=== PATIENT | female | born 2000 | race African-American/Black ===

== ENCOUNTER 2024-12-23 09:41 | Emergency (ER) | payer MEDICAID, SELFPAY ==
--- NOTE | 2024-12-23 | ECG_ITS ---
Test Reason : CHEST PAIN Blood Pressure : */* mmHG Vent. Rate : 79 BPM Atrial Rate : 79 BPM P-R Int : 172 ms QRS Dur : 82 ms QT Int : 360 ms P-R-T Axes : 36 57 21 degrees QTcB Int : 412 ms Normal sinus rhythm with sinus arrhythmia Normal ECG Early Repolarization No previous ECGs available Referred By: Generic ED Physician Electronically Signed By: CARLITOS VAZQUEZ MD
--- NOTE | ~2024-12-23 | XR_ITS ---
EXAMINATION: XR CHEST CLINICAL INFORMATION: cough, sob COMPARISON: None available. TECHNIQUE: 2 views of the chest were obtained. FINDINGS: No consolidation, pleural effusion or pneumothorax. Cardiomediastinal silhouette size is normal. Osseous structures are intact. XR/XR chest 2V IMPRESSION: Normal. Electronically signed by: Guillermo Benavides MD 12/23/2024 01:08 PM [facility] [place]
[2024-12-23 09:55] VITALS: BP 113/75; PULSE 80; RESP 18; TEMP 36.6; O2SAT 99; BMI 21.0
--- NOTE | 2024-12-23 13:32 | ED_ITS ---
HPI - URI/Sore Throat General Chief Complaint: Upper Respiratory Symptoms Stated Complaint: Chest Pain X 2-3 Days Time Seen by Provider: 12/23/24 13:58 Source: patient, RN notes reviewed and old records reviewed Mode of arrival: ambulatory History of Present Illness ED Provider: La Nena Capps PA-C HPI Narrative: 24-year-old female with no significant past medical history presenting to the ED complaining of cough with associated chest discomfort with cough and SOB x today. Reports multiple sick contacts at [employer]. Denies fever, chills, difficulty or inability to swallow, travel Related Data Allergies Allergy/AdvReac Type Severity Reaction Status Date / Time No Known Allergies Allergy Verified 12/23/24 09:56 Review of Systems Review of Systems: Yes all other systems are reviewed and are negative Constitutional: Constitutional: Reports as per [facility] Past Medical History Attestation statement: The following information was validated with the patient. Source: old records reviewed Social History Social History Do you have a plan to hurt others: No Plan Physical Exam Vital Signs: Vital Signs: Last Vital Signs Temp 97.9 F 12/23/24 09:55 Pulse 80 12/23/24 09:55 Resp 18 12/23/24 09:55 BP 113/75 12/23/24 09:55 Pulse Ox 99 12/23/24 09:55 O2 Del Method Room Air 12/23/24 09:55 BMI result Body Mass Index 21.0 Const: General: cooperative, healthy appearing and no acute distress Orientation/consciousness: patient oriented x3 Limitations: no limitations HEENT: Head: Yes normal to inspection and Yes atraumatic Ears: hearing grossly normal bilaterally and external ears normal General nose exam: Normal external nose present Face and sinus: Yes normal facial exam Mouth: Normal oral and palatal mucosa present and no drooling Throat: Yes posterior oropharynx normal, Yes tonsils normal, Yes uvula midline, No peritonsillar mass, No uvula laterally displaced and No uvular edema Eyes: General: appearance normal, both eyes and all related structures EOM: EOMs intact bilaterally Neck: Neck: Yes normal visual inspection and Yes no meningeal signs Resp: Effort & Inspection: normal respiratory effort, no respiratory distress and no stridor Auscultation: clear to auscultation bilaterally, no crackles, no rales, no rhonchi and no wheezes Cardio: Rate: regular rate Heart sounds: S1 normal heart sound present and S2 normal heart sound present GI: Inspection: Yes normal to inspection Palpation (GI): Soft to palpation, nontender, no guarding and not rigid Skin: Rashes: no rashes Wounds: no wounds Neuro: General: patient oriented x3, tone normal and no meningeal signs Cranial nerves: Yes CN's II-XII intact bilaterally Gait exam (Neuro): Normal gait present Extrem: General: Yes normal to inspection Course Course Course Narrative: This is a Rapid Medical Exam performed in triage by La Nena Capps PA-C. Full HPI, ROS and PE to be performed by primary ED provider. 24-year-old female presenting to the ED c/o chest discomfort x today with associated cough and SOB. Admits to multiple sick contacts. PE: Lungs CTA, talking in complete sentences Plan: Viral testing, CXR, EKG Medical Decision Making Medical Decision Making MDM Narrative: 24-year-old female with no significant past medical history presenting to the ED complaining of cough with associated chest discomfort with cough and SOB x today. On exam vital signs stable, NAD, nontoxic appearing, physical exam as noted above, uvula midline, oropharynx WNL, lungs CTA. Concern for viral illness vs pneumonia. Lower suspicion for bronchitis, ACS, PE Plan: EKG, Viral testing, rapid strep, x-ray Please refer to course for remaining clinical decision making, interpretation of labs/imaging results, and discussions with consultants and/or family members. Differential Diagnosis Differential Diagnoses: The differential diagnosis associated with the presentation includes As above Lab Data [facility] Lab Attestation statement: I reviewed the patient's lab results. Independent Interpretation I performed an independent interpretation of an: EKG (EKG my interpretation: normal sinus rhythm with sinus arrhythmia. Rate of 79. QRS 82. No previous EKGs to compare. No STEMI ) and Plain X-Ray Radiology Impression Discussion of test interpretation with radiology: I have reviewed the radiologist's reading. External Record Review External record reviewed: Inpatient record, Office record, Outpatient record, Prior outpatient labs, Prior outpatient radiology, Primary care record and Outside ED record Tests considered The following testing was considered but not selected: As above Prescription Management I considered prescription management with: Other Chronic Conditions Patient?s care impacted by: Other Social Determinants Patient?s care significantly limited by Social Determinants of Health including: Problems related to primary support group and Other Social Determinant of Health Discharge Plan Discharge Clinical Impression: Upper respiratory infection Patient Disposition: Home, Self-Care Instructions: Upper Respiratory Infection (DC) Additional Instructions: You have a virus. We tested you for COVID, flu, RSV and strep throat. You will be contacted with positive results only No antibiotics are indicated at this time Make sure you are staying hydrated. Drink plenty of fluids. Rest Alternate Tylenol and Motrin at home as needed for body aches and fever Follow-up with your doctor. If symptoms persist or worsen return to the emergency department *If you are a child & not tolerating liquid or urinating for more than 6 hours, or fevers are uncontrolled with medications at home, return to the emergency department* Referrals: Physician,Nonstaff [Primary Care Provider] - 3 days Print Language: Citizen Of [place]
[2024-12-23 14:20] LABS: IDNOW Serial# 58CA691E; Strep A Nucleic Acid Negative (Negative)
[2024-12-23 14:49] VITALS: BP 114/72; PULSE 78; RESP 18; TEMP 36.6; O2SAT 98
[2024-12-23 14:51] LABS: Influenza A PCR NEGATIVE (Negative); Influenza B PCR NEGATIVE (Negative); Resp Syncy Virus RNA Qual PCR NEGATIVE (Negative); SARS COV2 PCR INHOUSE NEGATIVE (Negative)
== END 2024-12-23 14:49 | disposition home or self-care (01) ==
LOC: HO.ED 14:14
PROVIDERS: Physician Assistant; Emergency Provider Emergency Medicine
DX: J06.9 Acute upper respiratory infection, unspecified (principal)
CPT/HCPCS: 0241U; 71046; 87651; 93005; 99283

== ENCOUNTER → 2024-12-23 09:51 | Outpatient (BNV) | payer SELFPAY | PROVIDERS: Visit Provider Internal Medicine Cardiovascular Disease | DX: R07.9 Chest pain, unspecified (principal) | CPT/HCPCS: 93010 ==

== ENCOUNTER → 2024-12-23 12:33 | Outpatient (BNV) | payer SELFPAY | PROVIDERS: Emergency Provider Emergency Medicine; Visit Provider Radiology Diagnostic Radiology | DX: R07.9 Chest pain, unspecified (principal) | CPT/HCPCS: 71046 ==

== ENCOUNTER 2025-01-12 13:03 | Emergency (ER) | payer MEDICAID, SELFPAY ==
--- NOTE | ~2025-01-12 | XR_ITS ---
EXAMINATION: XR CHEST CLINICAL INFORMATION: cough COMPARISON: 12/23/2024. TECHNIQUE: Frontal view of the chest was obtained. FINDINGS: The cardiac, hilar, and mediastinal contours are normal. The lungs are clear bilaterally. No pneumothorax or effusion. No focal osseous or soft tissue abnormality. XR/XR chest 1V IMPRESSION: Normal chest. Electronically signed by: Magen Kim MD 01/12/2025 01:37 PM EDT
[2025-01-12 13:09] VITALS: BP 107/57; PULSE 95; RESP 18; TEMP 36.8; O2SAT 98; BMI 21.1
--- NOTE | 2025-01-12 13:11 | ED_ITS ---
HPI - General Adult General Chief complaint: Upper Respiratory Symptoms Stated complaint: Bronchitis Time Seen by Provider: 01/12/25 15:55 Source: patient Limitations: no limitations History of Present Illness ED Provider: Karey Harris PA-C HPI narrative: 24-year-old female with a history of asthma who has had viral symptoms since December 28. Associated cough wheezing that has refractory to her home medica tions. Patient has been using her inhaler more frequently as his directed. Related Data Previous Rx's ?Medication ?Instructions ?Recorded albuterol sulfate 90 mcg/actuation 2 puff inhalation Q4-6H PRN 01/12/25 aerosol inhaler shortness of breath or wheezing #8.5 grams azithromycin 250 mg tablet See Rx Instructions PO .COMPLEX #6 01/12/25 tabs prednisone 20 mg tablet 40 mg (2 x 20 mg) PO DAILY #10 tabs 01/12/25 Allergies Allergy/AdvReac Type Severity Reaction Status Date / Time No Known Allergies Allergy Verified 01/12/25 13:10 Review of Systems Review of Systems: Yes all other systems are reviewed and are negative Constitutional: Constitutional: Denies fatigue and Denies fever(s) Cardiovascular: Cardiovascular: Denies chest pain and Denies dyspnea Respiratory: Respiratory: Reports cough, Denies dyspnea and Reports wheezing Gastrointestinal: Gastrointestinal: Denies diarrhea, Denies nausea and Denies vomiting Endocrine: Endocrine: Denies fatigue Allergic/Immunologic: Allergic/Immunologic: Reports wheezing PMFSH Past Medical History Attestation statement: The following information was validated with the patient. Social History Social History Advance Directives: No Advance Directives Information Provided: No Physical Exam ED Vital Signs: Vital Signs - 24 hr 01/12/25 13:09 01/12/25 16:48 Temperature 98.2 F 98.2 F Pulse Rate 95 95 Respiratory Rate 18 18 Blood Pressure 107/57 L 107/57 L Pulse Oximetry 98 98 Oxygen Delivery Method Room Air Room Air BMI result Body Mass Index 21.1 Const Other: Alert well-appearing Orientation/consciousness: patient oriented x3 Resp Other: Nonlabored respirations no wheezing, no active cough Cardio Other: Normal peripheral perfusion Neuro General: patient oriented x3, gait normal, no focal motor deficits and CN's II- XI intact bilaterally Psych Other: Cooperative Course Course Course Narrative: This is a rapid medical exam performed by Emelia Marie PA-C. The patient is a 24-year-old female with a history of asthma who has had viral symptoms since December 28. Associated cough wheezing that has refractory to her home medications. Patient has been using her inhaler more frequently as his directed. Denies fever. On exam her lungs are clear there was no wheezing at this time. She is afebrile. We will obtain a chest x-ray and a viral panel. She is stable and can return to the waiting room pending her full medical assessment. Medical Decision Making Medical Decision Making MDM Narrative: 24-year-old female with a history of asthma who has had viral symptoms since December 28. Associated cough wheezing that has refractory to her home medications. Patient has been using her inhaler more frequently as his directed. Problem: Asthma History: Per patient I have considered the following differential diagnoses: Bronchitis, pneumonia, viral syndrome, asthma exacerbation Plan: Patient declined a repeat nasal swab, she just had 1 a few days ago. That is understandable. Obtaining a chest x-ray. Patient was treated for mild asthma exacerbation. However given duration of symptoms that have been prolonged, we will add a Z-Karri for bronchitis. She does not smoke tobacco, I am not covering her for cap. I have independently reviewed the following tests: Chest x-ray:INDINGS: No consolidation, pleural effusion or pneumothorax. Cardiomediastinal silhouette size is normal. Osseous structures are intact. XR/XR chest 2V IMPRESSION: Normal. Discharge Plan Discharge Clinical Impression: Bronchitis Patient Disposition: Home, Self-Care Instructions: Acute Bronchitis (ED) Additional Instructions: You are being treated for bronchitis. See home care instructions. Use the inhaler only as directed. Take the steroid as directed. Use the Z-Karri as directed. The chest x-ray is clear there was no pneumonia. Follow up with primary care as needed. Prescriptions: New azithromycin 250 mg tablet See Rx Instructions .ROUTE .COMPLEX Qty: 6 0RF Rx Instructions: For 250 mg dose pack: take 500 mg today (day 1), then 250 mg for 4 days (days 2-5) prednisone 20 mg tablet 40 mg PO DAILY Qty: 10 0RF albuterol sulfate 90 mcg/actuation HFA aerosol inhaler 2 puff inhalation Q4-6H PRN (Reason: shortness of breath or wheezing) Qty: 8.5 0RF Interventions: ED Discharge Assessment Last Done: 01/12/25 16:48 Discharge Date/Time: 01/12/25 16:48 Print Language: [place]i
[2025-01-12 16:48] VITALS: BP 107/57; PULSE 95; RESP 18; TEMP 36.8; O2SAT 98
== END 2025-01-12 16:48 | disposition home or self-care (01) ==
PROVIDERS: Emergency Provider Emergency Medicine Emergency Medical Services
DX: J40 Bronchitis, not specified as acute or chronic (principal); R05.9 Cough, unspecified; J45.909 Unspecified asthma, uncomplicated
CPT/HCPCS: 71045; 99282; 99283

== ENCOUNTER → 2025-01-12 13:10 | Outpatient (BNV) | payer MEDICAID, SELFPAY | PROVIDERS: Visit Provider Radiology Diagnostic Radiology | DX: R05.9 Cough, unspecified (principal) | CPT/HCPCS: 71045 ==

== ENCOUNTER 2025-01-25 09:37 | Emergency (ER) | payer OTHER, SELFPAY ==
[2025-01-25 09:44] VITALS: BP 111/63; PULSE 84; RESP 16; TEMP 37; O2SAT 99; BMI 20.1
[2025-01-25 11:09] LABS: Influenza A PCR NEGATIVE (Negative); Influenza B PCR NEGATIVE (Negative); Resp Syncy Virus RNA Qual PCR NEGATIVE (Negative); SARS COV2 PCR INHOUSE NEGATIVE (Negative)
--- NOTE | 2025-01-25 11:18 | ED_ITS ---
HPI - General Adult General Chief complaint: Upper Respiratory Symptoms Stated complaint: bronchitis , vomiting, wants meds Time Seen by Provider: 01/25/25 11:17 Source: patient Mode of arrival: ambulatory Limitations: no limitations History of Present Illness ED Provider: Erin Miller PA-C HPI narrative: Patient is a 24 year old assigned female at with a history of recent bronchitis diagnosis presenting to the emergency department today with continued cough and requesting a Dayquil and Nyquil prescription. Patient states that she was here last week and diagnosed with bronchitis but now she would like to have dayquil and nyquil prescribed as well as a work note. Patient denies any dizziness, lightheadedness, abdominal pain, nausea, vomiting, fever, chills, blurry vision, double vision, loss of vision, chest pain, difficulty breathing, shortness of breath, back pain, night sweats, pain with urination, increased urinary frequency, increased urinary urgency, blood in her urine or stool, syncope or a near syncopal episode, recent trauma or falls, bowel incontinence, bladder incontinence, or any other complaints at this time. Onset (ago): week(s) (1) Relieving factors: none Exacerbating factors: none Associated symptoms: cough Related Data Previous Rx's ?Medication ?Instructions ?Recorded albuterol sulfate 90 mcg/actuation 2 puff inhalation Q4-6H PRN 01/12/25 aerosol inhaler shortness of breath or wheezing #8.5 grams azithromycin 250 mg tablet See Rx Instructions PO .COMPLEX #6 01/12/25 tabs prednisone 20 mg tablet 40 mg (2 x 20 mg) PO DAILY #10 tabs 01/12/25 chlorpheniramine-dextromethorphan See Rx Instructions .Route 01/25/25 2 mg-15 mg/15 mL oral liquid .COMPLEX #236 mL ([facility] Children's NyQuil Cold and Cough) dextromethorphan HBr 5 mg/5 mL 10 mg (10 mL) PO Q4-6H PRN cough 01/25/25 oral syrup ([facility] DayQuil Cough) #354 mL Allergies Allergy/AdvReac Type Severity Reaction Status Date / Time No Known Allergies Allergy Verified 01/25/25 09:46 Review of Systems Constitutional: Constitutional: Reports no additional constitutional comp laints, Denies chills, Denies fever(s) and Denies night sweats Eyes: Eyes: Reports no additional eye complaints, Denies blurry vision, Denies change in vision, Denies diplopia, Denies eye discharge, Denies loss of vision and Denies eye pain ENT: Denies dizziness Cardiovascular: Cardiovascular: Reports no additional cardiovascular complaints, Denies chest pain, Denies lightheadedness, Denies Loss of Consciousness and Denies dyspnea Respiratory: Respiratory: Reports no additional respiratory complaints, Reports cough and Denies dyspnea Gastrointestinal: Gastrointestinal: Reports no additional gastrointestinal complaints, Denies abdominal pain, Denies melena, Denies hematochezia, Denies change in bowel habits and Denies change in stool character Genitourinary: Genitourinary: Denies hematuria, Denies urinary frequency, Denies dysuria, Denies urinary incontinence, Denies urinary hesitancy and Denies urinary urgency Musculoskeletal: Musculoskeletal: Reports no additional musculoskeletal complaints, Denies numbness and Denies tingling Neurologic: Denies dizziness, Denies loss of vision, Denies numbness and Denies tingling Psychiatric: Psychiatric: Reports no additional psychiatric complaints Endocrine: Endocrine: Reports no additional endocrine complaints Hematologic/Lymphatic: Hematologic/Lymphatic: Reports no additional hematologic/lymphatic complaints Allergic/Immunologic: Allergic/Immunologic: Reports no additional allergic/immunologic complaints PMFSH Past Medical History Attestation statement: The following information was validated with the patient. Source: old records reviewed and nursing notes reviewed Social History Social History Advance Directives: No Advance Directives Information Provided: Yes Do you have a plan to hurt others: No Plan Physical Exam ED Vital Signs: Vital Signs - 24 hr 01/25/25 09:44 01/25/25 11:34 Temperature 98.6 F 98.6 F Pulse Rate 84 84 Respiratory Rate 16 16 Blood Pressure 111/63 111/63 Pulse Oximetry 99 99 Oxygen Delivery Method Room Air Room Air BMI result Body Mass Index 20.1 Const General: cooperative, no acute distress, alert and awake Nutritional Appearance: well nourished Orientation/consciousness: patient oriented x3 Limitations: no limitations HENMT Head: Yes normal to inspection and Yes atraumatic Ears: hearing grossly normal bilaterally and external ears normal General nose exam: Normal external nose present, no nasal discharge noted and no epistaxis Face and sinus: Yes normal facial exam, No abrasion and No laceration Mouth: Normal oral and palatal mucosa present, no drooling and no muffled voice Eyes General: appearance normal, both eyes and all related structures Periorbital: periorbital findings normal Eyelids: Yes eyelids normal Conjunctivae: conjunctivae normal Pupils: Equal, round and reactive pupils present EOM: EOMs intact bilaterally Neck Neck: Yes normal visual inspection, Yes full ROM and Yes no lymphadenopathy Chest Chest palpation & inspection: normal inspection of the chest Resp Effort & Inspection: normal respiratory effort and able to speak in complete sentences GI Inspection: Yes normal to inspection Neuro General: patient oriented x3, moves all extremities and CN's II-XI intact bilaterally Cranial nerves: Yes Equal, round and reactive pupils present Cognition (Neuro): normal cognition Extrem General: Yes normal to inspection, Yes full ROM and Yes capillary refill normal Psych Appearance: grossly normal Mental Status: mental status grossly normal Affect: normal affect Attitude: cooperative Thought process: Normal thought process present Thought content: Normal thought content present Insight: Good insight present (Psych) Medical Decision Making Medical Decision Making MDM Narrative: Patient is a 24 year old assigned female at with a history of recent bronchitis diagnosis presenting to the emergency department today with continued cough and requesting a Dayquil and Nyquil prescription. Patient's physical exam was unremarkable. I explained my physical exam findings to the patient. I answered all questions asked by the patient. I stressed the importance of the patient taking her medication as directed (either prescribed or as the over the counter packaging recommends). I stressed the importance of the patient following up with her primary care provider. I stressed the importance of the patient returning to the emergency department immediately if her symptoms were to worsen or if she were to develop any dizziness, shortness of breath, difficulty breathing, chest pain, blurry vision, loss of vision, nausea, vomiting, abdominal pain, fever, chills, back pain, or any other complaints. Patient verbalized agreement and understanding with this treatment plan and discharge. Differential Diagnosis Differential Diagnoses: The differential diagnosis associated with the presentation includes Cough Request for time off of work Request for Dayquil and Nyquil prescription Bronchitis Admission/Observation Consideration of admission/observation: Escalation of care including ad mission/observation considered Patient would have been admitted to the hospital had her clinical presentation warranted hospital admission. Lab Data [facility] Lab Attestation statement: I reviewed the patient's lab results. My interpretation of these studies and their corresponding values is that they are grossly normal. Labs: Lab Results 01/25/25 Range/Units 10:22 Influenza Type A (PCR) NEGATIVE (Negative) Influenza Type B (PCR) NEGATIVE (Negative) RSV RNA Qual (PCR) NEGATIVE (Negative) SARS-CoV-2 RNA (RT-PCR) NEGATIVE (Negative) Discharge Plan Discharge Clinical Impression: Bronchitis Patient Disposition: Home, Self-Care Instructions: Acute Bronchitis (ED) Additional Instructions: I prescribed you Dayquil and Nyquil as you have requested. However, given these are over the counter medications - I am unsure if the pharmacy will fill it through your insurance or not. That is something you need to confirm / discuss with your pharmacy. Follow up with your primary care provider. Return to the emergency department immediately if your symptoms worsen or if you develop any numbness, tingling, dizziness, shortness of breath, difficulty breathing, chest pain, blurry vision, loss of vision, nausea, vomiting, abdominal pain, fever, chills, back pain, or any other complaints. Please see the information below about our Patient Portal. If you are not yet enrolled in the [facility] Patient Portal, you will receive an enrollment email invitation following your visit to any [facility] setting. You may also self-enroll in the Patient Portal by visiting our website: [email or web address] The following information is required to access the Patient Portal: - Your [facility] Medical Record Number - Your personal home email address (must match what is in your electronic medical record, Registration staff can assist with this) - Name - Date of Capabilities of the Patient Portal: - Message some providers - View upcoming appointments - Access your health summary, medical history, and visit history - View current conditions and allergies - View procedure and lab results - View your medications, including guidelines, side effects, and precautions - Complete pre-appointment questionnaires requested by your provider - Ready summary reports of your office visits and procedures To access the Patient Portal Mobile [employer], follow these directions: - Search [employer] in the [employer] Store or Google Play Store - Download the [employer] - Search for [facility] - Enter your login/password Prescriptions: New [facility] NyQuil Cold-C 2-15 mg/15 mL liquid See Rx Instructions .ROUTE .COMPLEX Qty: 236 0RF Rx Instructions: Take as prescribed on bottle directions. [facility] DayQuil Cough 5 mg/5 mL syrup 10 mg PO Q4-6H PRN (Reason: cough) Qty: 354 0RF Rx Instructions: Take as directed by instructions on the bottle. No Action azithromycin 250 mg tablet See Rx Instructions .ROUTE .COMPLEX Qty: 6 0RF Rx Instructions: For 250 mg dose pack: take 500 mg today (day 1), then 250 mg for 4 days (days 2-5) prednisone 20 mg tablet 40 mg PO DAILY Qty: 10 0RF albuterol sulfate 90 mcg/actuation HFA aerosol inhaler 2 puff inhalation Q4-6H PRN (Reason: shortness of breath or wheezing) Qty: 8 .5 0RF Referrals: [facility] Family Medicine [Provider Group] (Call to establish and follow up with a primary care provider. If you already have a primary care provider, please follo w up with them.) [facility] [Provider Group] (Call to establish and follow up with a primary care provider. If you already have a primary care provider, please follow up with them.) [facility] Primary [facility] [Provider Group] (Call to establish and follow up with a primary care provider. If you already have a primary care provider, please follow up with them.) [facility] Primary [facility] [Provider Group] (Call to establish and follow up with a primary care provider. If you already have a primary care provider, please follow up with them.) Stand Alone Forms: Work/School Release Interventions: ED Discharge Assessment Last Done: 01/25/25 11:34 Discharge Date/Time: 01/25/25 11:34 Print Language: Vietnamese
[2025-01-25 11:34] VITALS: BP 111/63; PULSE 84; RESP 16; TEMP 37; O2SAT 99
== END 2025-01-25 11:34 | disposition home or self-care (01) ==
PROVIDERS: Emergency Provider Emergency Medicine
DX: J40 Bronchitis, not specified as acute or chronic (principal); Z03.818 Encounter for observation for suspected exposure to other biological agents ruled out
CPT/HCPCS: 0241U; 99282; 99283

== ENCOUNTER 2025-09-30 19:04 | Emergency (ER) | payer OTHER, SELFPAY ==
[2025-09-30 19:16] VITALS: BP 130/70; PULSE 93; RESP 16; TEMP 36.9; O2SAT 96; BMI 20.1
--- NOTE | 2025-09-30 19:19 | ED_ITS ---
HPI - Headache General Chief Complaint: Headache Stated Complaint: Headache Time Seen by Provider: 09/30/25 23:44 History of Present Illness ED Provider: Tobias GREGORY Narrative: The patient is a 25-year-old female who has no significant past medical history and is on no medications. The patient says that at around noon today they developed a headache that was associated with nausea. At around 15:00 they started to experience vomiting. They vomited several times an ultimately came to the emergency room. There was a long wait in the waiting room and while waiting to be seen the patient's headache has significantly improved. The patient reports that the headache had been associated with the photophobia earlier. Her photophobia a subsequently resolved. The patient has had similar headaches in the past but never as severe as today. She has had nausea with the headaches like this in the past but she has never vomited before. The patient is enrolled in the [employer] program on the campus of the [facility] [employer] [facility]. She has been learning [employer] and [employer]. She is from [place]. She goes home every weekend. The last time she has a headache like this was a few months ago. It was less severe than the headache today. She has never had a headache which prompted her to go to the emergency room before. Related Data Previous Rx's ?Medication ?Instructions ?Recorded albuterol sulfate 90 mcg/actuation 2 puff inhalation Q 4-6H PRN 01/12/25 aerosol inhaler shortness of breath or wheez ing #8.5 grams azithromycin 250 mg tablet See Rx Instructions PO .COM PLEX #6 01/12/25 tabs prednisone 20 mg tablet 40 mg (2 x 20 mg) PO DAILY # 10 tabs 01/12/25 chlorpheniramine-dextromethorphan See Rx Instructions .Route 01/25/25 2 mg-15 mg/15 mL oral liquid .COMPLEX #236 mL ([facility] NyQuil Cold and Cough) dextromethorphan HBr 5 mg/5 mL 10 mg (10 mL) PO Q4-6H PRN cough 01/25/25 oral syrup ([facility] DayQuil Cough) #354 mL Allergies Allergy/AdvReac Type Severity Reaction Status Date / Time No Known Allergies Allergy Verified 09/30/25 19:19 Review of Systems 2 Review of Systems: Yes all other systems are reviewed and are negative [facility] Social History Social History Advance Directives: No Advance Directives Information Provided: Yes Physical Exam 2 Vital Signs: Vital Signs: Last Vital Signs Temp 98.0 F 10/01/25 01:35 Pulse 82 10/01/25 01:35 Resp 16 10/01/25 01:35 BP 118/68 10/01/25 01:35 Pulse Ox 97 10/01/25 01:35 O2 Del Method Room Air 10/01/25 01:35 BMI result Body Mass Index 20.1 Const: Other: The patient is a healthy looking 25-year-old who was awake and alert. She does not seem in acute distress or toxic or ill. She is pleasant and cooperative. Orientation/consciousness: patient oriented x3 HEENT: Other: The face is symmetrical. ?Mucous membranes moist. Eyes: Other: Pupils are round equal, conjunctivae are clear, extraocular movements intact Neck: Other: The patient is neck is completely supple. She can touch her chin to her chest very easily and fully. Resp: Effort & Inspection: normal respiratory effort Auscultation: clear to auscultation bilaterally Cardio: Rate: regular rate Rhythm: regular rhythm Heart sounds: S1 normal heart sound present and S2 normal heart sound present GI: Other: Abdomen is soft and nontender Skin: Other: The skin is dry and unremarkable Neuro: General: patient oriented x3, tone normal, moves all extremities, no focal motor deficits and CN's II-XI intact bilaterally Extrem: Other: There is no calf swelling or tenderness. No asymmetry. No peripheral edema. Course Course Course Narrative: This is an RME: Additional HPI, ROS, PE not included below will be deferred to primary provider. RME assessment and note performed by: Meghana Boykin PA-C This is a 89-tuia-huo-female who presents to the ER with a complaint of headache starting today. Patient reports gradual onset, with associated nausea and vomiting. She states that she has had some nausea and vomiting. She took Tylenol with no relief. Stopped her control 2 weeks ago. Unsure if she is . Plan: Labs, viral swabs, further ER evaluation needed. Medications Administered Discontinued Medications Generic Name Dose Route Start Last Admin Trade Name Freq PRN Reason Stop Dose Admin Ibuprofen 400 mg 10/01/25 00:08 10/01/25 00:22 Ibuprofen 400 Mg Tablet PO 10/01/25 00:09 400 mg ONCE ONE Administration Ondansetron HCl 4 mg 10/01/25 00:08 10/01/25 00:22 Ondansetron Odt 4 Mg Tab.Aarti PAPPAS 10/01/25 00:09 4 mg ONCE ONE Administration Medical Decision Making Medical Decision Making [facility] Narrative: The patient is a 25-year-old female who presents with a headache that was associated with vomiting and photophobia. While waiting to be seen her headache is largely resolved. She was given some ibuprofen and oral ondansetron. She was able to tolerate oral intake. She had no ongoing vomiting. I think this was probably a migraine phenomenon. She will be discharged to returned to [employer]. She should return if worse. Lab Data 09/30/25 19:37 09/30/25 19:37 Labs: Lab Results 09/30/25 Range/Units 19:37 WBC 13.4 H (4.8-10.8) X10*3/uL RBC 4.61 (4.20-5.50) X10*6/uL Hgb 13.8 (12.0-16.0) g/dl Hct 39.7 (37.0-47.0) % MCV 86.1 (80.0-98.0) fL MCH 29.9 (27.0-33.0) pg MCHC 34.8 (31.0-35.0) g/dl RDW 13.2 (11.0-16.0) % Plt Count 264 (160-400) X10*3/uL MPV 10.2 (9.4-12.3) fL Immature Gran % (Auto) 0.3 (0.0-0.4) % Neut % (Auto) 86.3 H (45-73) % Lymph % (Auto) 9.2 L (20-40) % [place] % (Auto) 3.7 (2-11) % Eos % (Auto) 0.1 (0-4) % Baso % (Auto) 0.4 (0-2) % Lymph # (Auto) 1.2 (1.2-4.9) X10*3/uL [place] # (Auto) 0.5 (0.1-1.2) X10*3/uL Eos # (Auto) 0.0 (0.0-0.4) X10*3/uL Baso # (Auto) 0.1 (0.0-0.2) X10*3/uL Abs Immat Gran (auto) 0.04 H (0.00-0.03) X10*3/uL Absolute Neuts (auto) 11.5 H (2.0-8.3) x10*3/uL Absolute Nucleated RBC 0.000 (0.0-0.012) X10*3/uL Nucleated RBC % (auto) 0.0 (0.0-0.2) /100WBC Sodium 140 (135-145) mmol/L Potassium 4.4 (3.3-5.1) mmol/L Chloride 108 (96-108) mmol/L Carbon Dioxide 25 (22-29) mmol/L Anion Gap 11 L (12-20) BUN 10 (9-16) mg/dL Creatinine 0.81 (0.5-1.4) mg/dL Estim Creat Clear Calc 83.6 Estimated GFR > 60 Random Glucose 94 (60-115) mg/dL Calcium 9.9 (8.4-10.2) mg/dL Magnesium 2.1 (1.6-2.6) mg/dL Total Bilirubin 0.8 (0.0-1.0) mg/dL Direct Bilirubin 0.3 (0.0-0.5) mg/dL AST 35 H (5-31) U/L ALT 22 (0-31) U/L Alkaline Phosphatase 64 (39-117) U/L Total Protein 7.9 (6.5-8.0) g/dL Albumin 5.0 (3.5-5.0) g/dL Beta HCG, Quant < 2 mIU/mL Influenza Type A (PCR) NEGATIVE (Negative) Influenza Type B (PCR) NEGATIVE (Negative) RSV RNA Qual (PCR) NEGATIVE (Negative) SARS-CoV-2 RNA (RT-PCR) NEGATIVE (Negative) Discharge Plan Discharge Clinical Impression: Headache, Vomiting Patient Disposition: Home, Self-Care Instructions: Migraine Headache (ED) Additional Instructions: I think that you might have had a migraine headache today. Migraine headaches are often associated with nausea and vomiting and also sensitivity to light. Please rest and take it easy. When you are able to follow up with your primary care doctor in [place] that would be good to do to discuss these episodes further. Return to the emergency room if you feel significantly worse. Prescriptions: No Action azithromycin 250 mg tablet See Rx Instructions .ROUTE .COMPLEX Qty: 6 0RF Rx Instructions: For 250 mg dose pack: take 500 mg today (day 1), then 250 mg for 4 days (days 2-5) prednisone 20 mg tablet 40 mg PO DAILY Qty: 10 0RF albuterol sulfate 90 mcg/actuation HFA aerosol inhaler 2 puff inhalation Q4-6H PRN (Reason: shortness of breath or wheezing) Qty: 8.5 0RF [facility] NyQuil Cold-C 2-15 mg/15 mL liquid See Rx Instructions .ROUTE .COMPLEX Qty: 236 0RF Rx Instructions: Take as prescribed on bottle directions. [facility] DayQuil Cough 5 mg/5 mL syrup 10 mg PO Q4-6H PRN (Reason: cough) Qty: 354 0RF Rx Instructions: Take as directed by instructions on the bottle. Interventions: ED Discharge Assessment Last Done: 10/01/25 01:35 Discharge Date/Time: 10/01/25 01:36 Print Language: Congolese
[2025-09-30 19:45] LABS: MANUAL DIFF FLAG NO
[2025-09-30 19:47] LABS: Hematocrit 39.7 % (37.0-47.0); Hemoglobin 13.8 g/dl (12.0-16.0); Imm Gran Abs Auto 0.04 X10*3/uL (0.00-0.03); Imm Gran Pct Auto 0.3 % (0.0-0.4); Lymphocytes Absolute Auto 1.2 X10*3/uL (1.2-4.9); Mean Corpuscular HGB Conc 34.8 g/dl (31.0-35.0); Mean Corpuscular Hemoglobin 29.9 pg (27.0-33.0); Mean Corpuscular Volume 86.1 fL (80.0-98.0); NRBC Abs Auto 0.000 X10*3/uL (0.0-0.012); NRBC Pct Auto 0.0 /100WBC (0.0-0.2); Platelet Count 264 X10*3/uL (160-400); Red Blood Count 4.61 X10*6/uL (4.20-5.50); White Blood Count 13.4 X10*3/uL (4.8-10.8)
[2025-09-30 20:06] LABS: Alanine Aminotransferase 22 U/L (0-31); Albumin Level 5.0 g/dL (3.5-5.0); Alkaline Phosphatase 64 U/L (39-117); Anion Gap 11 (12-20); Aspartate Amino Transferase 35 U/L (5-31); Blood Urea Nitrogen 10 mg/dL (9-16); Calcium 9.9 mg/dL (8.4-10.2); Carbon Dioxide 25 mmol/L (22-29); Chloride 108 mmol/L (96-108); Creatinine Clr Calc Pharmacy 83.6; Estimated Glomerular Filt Rate > 60; Magnesium 2.1 mg/dL (1.6-2.6); Potassium 4.4 mmol/L (3.3-5.1); Sodium 140 mmol/L (135-145); Total Protein 7.9 g/dL (6.5-8.0)
[2025-09-30 20:22] LABS: Resp Syncy Virus RNA Qual PCR NEGATIVE (Negative); SARS COV2 PCR INHOUSE NEGATIVE (Negative)
--- OUTSIDE RECORDS SUMMARY | 2025-09-30 23:50 | XMS_ITS | Encounter Summary ---
Author Organization [facility] Address [address] [place] [phone] Phone Care Team Providers Care Television Specialist Name Role Phone Lindsey Jiménez NP Primary Care Provide r Encounter Details Date Type Department Care Team ([facility] st Contact Info) Description 06/17/2023 Telephone [facility] OBGYN Gynecology Resident [address] [place] [address] Radha Kitchen [address] [place] [address] [email or web address] Social History Tobacco Use Types Packs/Day Years Used Date Smoking Tobacco: Never Smokeless Tobacco: Current Comments:Sronto leaf smokes 3x/week Alcohol Use Standard Drinks/Week Comments Not Currently 0 (1 standard drink = 0.6 oz pur e alcohol) Education Answer Date Recorded Are you interested in more education? Not on brook e 02/20/2023 Are you concerned about learning? Not on file 02/20/2023 No 02/20/2023 No 02/20/2023 Digital Access Answer Date Recorded No 03/15/2023 No 03/15/2023 Reliable internet access at home? Not on file 03/15/2023 Device with a working camera? Not on file Intimate Partner Violence Answer Date R ecorded Are you denied basic needs s uch as food, clothing, or medical care? Deferred 06/12/2023 In the past 12 months have y ou been in a relationship with a person who hurts, threatens, or tries to control you? Deferred 06/12/2023 Are you denied basic needs s uch as food, clothing, or medical care? Deferred 06/12/2023 In the past 12 months have y ou been in a relationship with a person who hurts, threatens, or tries to control you? Deferred 06/12/2023 Comments No Sex and Gender Information Value Date Recorded Sex Assigned at Female 01/25/2023 11:11 AM EDT Legal Sex Female 6:37 PM EST Gender Identity Non-binary 01/25/2023 11:11 AM EDT Sexual Orientation Queer 01/25/2023 11 :11 AM EDT documented as of this encounter Plan of Treatment Not on file documented as of this encounter Visit Diagnoses Not on filedocumented in this encounter Care Teams Television Specialist Relationship Specialty Start Date End Date Lindsey Jiménez NP [address] [place] [id number] PCP - General Nurse Practitioner 01/25/23 documented as of this encounter Additional Source Comments The information contained in this document represents components of the legal health record. It is not the complete legal health record.[facility]
--- OUTSIDE RECORDS SUMMARY | 2025-09-30 23:50 | XMS_ITS | Encounter Summary ---
Author Organization [facility] Address [address] [place] [address] Phone Care Team Providers Care Knockdown Worker Name Role Phone Lindsey Jiménez NP Primary Care Provide r Encounter Details Date Type Department Care Team ([facility] st Contact Info) Description 06/14/2023 Telephone [facility] OBGYN Gynecology Resident [address] [place] [address] Radha Kitchen [address] [place] [address] [email or web address] Social History Tobacco Use Types Packs/Day Years [...] on filedocumented in this encounter Care Teams Knockdown Worker Relationship Specialty Start Date End Date Lindsey Jiménez NP [address] [place] [phone] PCP - General Nurse Practitioner 01/25/23 documented as of this encounter Additional Source Comments The information contained in this document represents components of the legal health record. It is not the complete legal health record.[facility]
--- OUTSIDE RECORDS SUMMARY | 2025-09-30 23:51 | XMS_ITS | Clinical Summary ---
Author Organization [facility] Address [address] [facility] [address] [place] [phone] Phone Care Team Providers Care Food And Beverage Manager Name Role Phone Lindsey Jiménez NP Primary Care Provide r Allergies No known active allergies Medications acetaminophen (TYLENOL) 500 MG tablet Take 2 tablets (1,000 mg total) by mouth every 8 (eight) hours as needed for pain (specific location in comments). 200 tablet 03/22/2023 Active ibuprofen (ADVIL,MOTRIN) 600 MG tablet Take 1 tablet (600 mg total) by mouth every 8 (eight) hours as needed for pain (specific location in comments). 28 tablet 03/22/2023 Active Active Problems Problem Noted Date Diagnosed Date history 06/13/2023 Social History Tobacco Use Types Packs/Day Years Used Date Smoking Tobacco: Never Smokeless Tobacco: Current Tobacco Cessation:Ready to Q uit: Not Asked; Counseling Given: Not Answered Comments:Sronto leaf smokes 3x/week Alcohol Use Standard [...] Orientation Queer 01/25/2023 11 :11 AM EDT Last Filed Vital Signs Vital Sign Reading Time Taken Comments Blood Pressure 102/56 06/13/2023 12:20 PM EDT Pulse 85 06/13/2023 12:20 PM EDT Temperature 37.2 C (98.9 F) 06/13/2023 12:20 PM EDT Respiratory Rate 18 06/13/2023 7:17 AM EDT Oxygen Saturation 100% 06/13/2023 12:20 PM EDT Inhaled Oxygen Concentration - - Weight 49 kg (108 lb) 06/12/2023 6:36 PM EDT Height 157.5 cm (5' 2 ) 06/12/2023 6:36 PM EDT Body Mass Index 19.75 06/12/2023 6:36 PM EDT Plan of Treatment Health Maintenance Due Date Last Done Comments Adult Td,Tdap Booster 2000 DEPRESSION SCREENING 2012 SMOKING Hx and SMOKELESS TOB ACCO SCREENING 2013 HPV VACCINES (1 - 3-dose series) 2015 HEPATITIS C SCREENING 2018 HIV ONE-TIME SCREENING (18-6 5 YEARS) 2018 HEPATITIS A VACCINES (1 of 2 - Risk 2-dose series) 2019 PAP SMEAR 2021 INFLUENZA VACCINE (#1) 2025 COVID-19 VACCINE ( - 2024-2 6 season) 2025 HIB VACCINES Aged Out No longer eligi ble based on patient's age to complete this topic MENINGOCOCCAL VACCINES (ACWY) Aged Out No longer eligible based on patient's age to complete this topic MENINGOCOCCAL VACCINES (B) Aged Out N o longer eligible based on patient's age to complete this topic PNEUMOCOCCAL VACCINES (0-49 years) Aged Out No longer eligible based on patient's age to complete this topic Medical Devices Implanted Type Area State Auditor Device Identifier Shelf Expiration Date Model / Serial / Lot 0.9mm(0.035 ) X 102mm(4 ) Implanted:Qty: 2 on 03/22/2023 by Alec Sandra MD at [facility] Right: Finger 11/19/2026 [id number] / N/A / [id number] [place] [address] [facility] [employer] ACO [facility] [facility] [employer] Member Subscriber Plan / Payer (Ef fective 2023-Present) Name:Manny Moulton Relation to Subscriber:Self Name:Manny Moulton Payer ID:[id number] Group ID:[id number] Type:Medicaid Address: [id number] [facility] Michael [facility] [employer] A[employer] Care Teams Food And Beverage Manager Relationship Specialty Start Date End Date Lindsey Jiménez NP [address] [place] [phone] PCP - General Nurse Practitioner 01/25/23 Additional Source Comments The information contained in this document represents components of the legal health record. It is not the complete legal health record.[facility]
--- OUTSIDE RECORDS SUMMARY | 2025-09-30 23:51 | XMS_ITS | Encounter Summary ---
Author Organization [facility] Address [address] [place] [address] [place] [phone] Phone Care Team Providers Care Radiotelephone Technical Operator Name Role Phone Lindsey Jiménez NP Primary Care Provide r Encounter Details Date Type Department Care Team (Late st Contact Info) Description 03/22/2023 Procedure Pass BWF Periop 6th floor [address] [place] [address] Social History Tobacco Use Types Packs/Day Years [...] with a working camera? Not on file Comments No Sex and Gender Information Value [...] on filedocumented in this encounter Care Teams Radiotelephone Technical Operator Relationship Specialty Start Date End Date Lindsey Jiménez NP [address] [place] [address] PCP - General Nurse Practitioner 01/25/23 documented as of this encounter Additional Source Comments The information contained in this document represents components of the legal health record. It is not the complete legal health record.[facility]
[2025-10-01 01:35] VITALS: BP 118/68; PULSE 82; RESP 16; TEMP 36.7; O2SAT 97
== END 2025-10-01 01:36 | disposition home or self-care (01) ==
PROVIDERS: Physician Assistant Medical; Emergency Provider Emergency Medicine
DX: R51.9 Headache, unspecified (principal); R11.10 Vomiting, unspecified; Z03.818 Encounter for observation for suspected exposure to other biological agents ruled out; Z79.899 Other long term (current) drug therapy
CPT/HCPCS: 80048; 80076; 83735; 84702; 85025; 87637; 99283